=== PATIENT | female | born 1995 | race Caucasian/White ===

== ENCOUNTER 2017-02-17 18:15 | Emergency (ER) | payer OTHER ==
[~2017-02-17] VITALS: Ht 160 cm; Wt 70.0 kg
[2017-02-17 18:17] VITALS: Ht 160 cm; Wt 70.0 kg
[2017-02-17] MEDS ORDERED: ACETAMINOPHEN 500 MG TAB PO STA (20:34)
--- NOTE | 2017-02-17 21:15 | ERD ---
ER Documentation Chief Complaint Date/Time DATE: 02/17/17 TIME: 21:12 Chief Complaint body aches,chills, st today HPI This is a 21-year-old female presents emergency department for fever, chills, headache, body aches and sore throat that started today. Patient states she had one episode of nonbilious nonbloody emesis today. Denies abdominal pain. No diarrhea or further vomiting. Denies dysuria or hematuria. Patient states she has sore throat however no difficulty swallowing. No drooling. No cough, shortness of breath or difficulty breathing. Denies chest pain or chest pressure. No nasal congestion, rhinitis or rhinorrhea. Denies sick contacts. ROS All systems reviewed and are negative except as per history of present illness. Medications Home Meds Active Scripts Ibuprofen* (Motrin*) 600 Mg Tab, 600 MG PO Q6, #10 TAB Prov:ZOHAIB CANALES NP 02/17/17 Oseltamivir Phosphate* (Tamiflu*) 75 Mg Capsule, 75 MG PO BID for 5 Days, CAP Prov:ZOHAIB CANALES NP 02/17/17 Allergies Allergies: Coded Allergies: No Known Drug Allergies (Verified Allergy, Unknown, 01/11/14) PMhx/Soc History of Surgery: No Anesthesia Reaction: No Hx Neurological Disorder: No Hx Respiratory Disorders: No Hx Cardiac Disorders: No Hx Psychiatric Problems: No Hx Miscellaneous Medical Probl: No Hx Alcohol Use: No Hx Substance Use: No Hx Tobacco Use: No Physical Exam Vitals Vital Signs Date Time Temp Pulse Resp B/P Pulse Ox O2 Delivery O2 Flow Rate FiO2 02/17/17 18:17 102.1 132 24 138/85 99 Physical Exam Const: No acute distress, alert Head: Atraumatic Eyes: Normal Conjunctiva ENT: Normal External Ears, Nose and Mouth. Neck: Full range of motion..~ No meningismus. Resp: Clear to auscultation bilaterally Cardio: Regular rate and rhythm, no murmurs Abd: Soft, non tender, non distended. Normal bowel sounds Skin: No petechiae or rashes Back: No midline or flank tenderness Ext: No cyanosis, or edema Neur: Awake and alert Psych: Normal Mood and Affect Results 24 hrs Laboratory Tests Test 02/17/17 22:08 Bedside Urine pH (LAB) 7.5 Bedside Urine Protein (LAB) Negative Bedside Urine Glucose (UA) Negative Bedside Urine Ketones (LAB) Negative Bedside Urine Blood Negative Bedside Urine Nitrite (LAB) Negative Bedside Urine Leukocyte Esterase (L Negative Current Medications Medications (Trade) Dose Ordered Sig/Earnest Route PRN Reason Start Time Stop Time Status Last Admin Dose Admin Acetaminophen (Tylenol Tab) 500 mg ONCE STAT PO 02/17/17 20:34 02/17/17 20:36 DC 02/17/17 21:00 Procedures/MDM MDM: 21-year-old female presents emergency department for headache, fever, chills and sore throat starting today. Denies cough, shortness of breath, difficult to breathing, chest pain or chest pressure. No abdominal pain. No active vomiting or diarrhea while in the ED. Patient did not take any medications at home. Patient has fever of 102.1F on the ED. Patient given Tylenol on the ED. No signs or symptoms of respiratory distress. Low suspicion for pneumonia, pleural effusion, pneumothorax or acute NE. Differential diagnosis includes but not limited to URI, influenza, otitis media , otitis externa, asthma exacerbation, croup, bronchitis, bronchiolitis and costochondritis. Patient is appropriate for outpatient management and will be given prescription for Tamiflu and ibuprofen. Instructed patient to follow-up with primary care provider in the next 2-3 days for reassessment and additional management. Return to ED for any high fever, chest pain, difficulty breathing, shortness breath, wheezing, vomiting, diarrhea, abdominal pain or any new or worsening symptoms. Patient verbalizes understanding. All questions answered at discharge. Departure Diagnosis: Primary Impression: Influenza Condition: Stable ZOHAIB CANALES NP February 17, 2017 21:15
[2017-02-17] MEDS ORDERED: IBUP-1542 PO (21:16)
[2017-02-17] MEDS ORDERED: OSLT75C PO (21:16)
[2017-02-17 22:06] LABS: URINE BLOOD (Dip) POC Negative (NEGATIVE)
== END 2017-02-17 22:33 | disposition home or self-care (01) ==
LOC: FTE 18:15
DX: J11.1 Influenza due to unidentified influenza virus with other respiratory manifestations (principal)
CPT/HCPCS: 81003; Z7502; Z7610; 99283